=== PATIENT | female | born 1995 | race Caucasian/White ===

== ENCOUNTER 2018-11-20 00:05 | Inpatient (IN) | payer OTHER ==
[2018-11-20] VITALS (9 sets, daily range): BP systolic 96–120; BP diastolic 50–73; PULSE 82–110; RESP 17–20; Ht 147.3 cm; Wt 75.6 kg
[~2018-11-20] VITALS: Ht 147.3 cm; Wt 75.6 kg
[~2018-11-20 00:05] MED LIST: FERR240T9 PO; FOLI-49 PO; PREN-39 PO
[2018-11-20] MEDS: LACTATED RINGER'S 1,000 ML IV SCH ×4 (00:54→08:09)
[2018-11-20] MEDS ORDERED: CARBOPROST 250 MCG INJ IM PRN ×2 (01:00→13:00)
[2018-11-20] MEDS ORDERED: IBUPROFEN 600 MG TAB PO PRN (01:00)
[2018-11-20] MEDS ORDERED: OXYCODONE/ASPIRIN (4.88/325) TAB PO PRN (01:00)
[2018-11-20] MEDS ORDERED: LIDOCAINE 1% (MPF) 30 ML INJ INJ PRN (01:00)
[2018-11-20] MEDS ORDERED: BUTORPHANOL 2 MG INJ IV PRN (01:00)
[2018-11-20] MEDS ORDERED: MISOPROSTOL 200 MCG TAB PR PRN ×2 (01:00→13:00)
[2018-11-20] MEDS ORDERED: OXYTOCIN 30 UNITS/LR 500 ML IV SCH ×4 (01:00→12:48)
[2018-11-20] MEDS ORDERED: OXYTOCIN 30 UNITS/LR 500 ML IV PRN ×2 (01:00→13:00)
[2018-11-20] MEDS ORDERED: METHYLERGONOVINE 0.2 MG INJ IM PRN ×2 (01:00→13:00)
[2018-11-20] MEDS ORDERED: AMPICILLIN 2 GM/NS (PMX) 100 ML IV ONE (01:00)
[2018-11-20] MEDS ORDERED: FENTAnyl 2MCG/ML-ROPIV 0.2% 100 ML ONE (02:09)
--- NOTE | 2018-11-20 02:22 | PREAC ---
Date/Time of Note Date/Time of Note DATE: 11/20/18 TIME: 02:20 Anesthesia Eval and Record Evaluation Time Pre-Procedure Interview DATE: 11/20/18 TIME: 01:34 Age 23 Sex female NPO: 8 hrs Preoperative diagnosis iup @ 39 wks. labor, water broke, Planned procedure jose francisco Past Medical History Past Medical History: Includes : : (2), Para: (1), Gestational age: (39 wks.) Surgery & Anesthesia Issues No known issue Meds Anticoagulation: No Beta Rhonda within 24 hr: No Reason Beta Rhonda not given: Pt. not on B-Rhonda Reported Medications Folic Acid* (Folic Acid*) 1 Mg Tablet, 1 MG PO DAILY, TAB 08/29/15 Ferrous Gluconate (Iron) 1 Tab Tablet, 1 TAB PO 08/29/15 Vits W-Ca,Fe,Fa(<1MG) ( Vitamins) 1 Tab Tablet, 1 TAB PO 08/29/15 Current Medications Lactated Ringer's 1,000 ml @ 125 mls/hr Q8H IV Last administered on 11/20/18at 01:58; Admin Dose 125 MLS/HR; Start 11/20/18 at 00:32 Ampicillin 50 ml @ 100 mls/hr Q4H IV ; Start 11/20/18 at 05:00 Butorphanol Tartrate (Stadol) 2 mg Q2H PRN IV PAIN; Start 11/20/18 at 01:00 Lidocaine (Xylocaine 1% (Mpf)) 30 ml ONCE PRN INJ EPISIOTOMY; Start 11/20/18 at 01:00 Oxytocin/Lactated Ringer's 500 ml @ 500 mls/hr ONCE POST IV ; Start 11/20/18 at 01:00 Oxytocin/Lactated Ringer's 500 ml @ 125 mls/hr POST IV ; Start 11/20/18 at 01:00 Ibuprofen (Motrin) 600 mg ONCE PRN PO PAIN LEVEL 1-5; Start 11/20/18 at 01:00 Oxycodone/Aspirin (Percodan) 2 tab ONCE PRN PO PAIN LEVEL 6-10; Start 11/20/18 at 01:00 Oxytocin/Lactated Ringer's 500 ml @ 0 mls/hr ONCE PRN IV VAGINAL BLEEDING; Start 11/20/18 at 01:00 Methylergonovine Maleate (Methergine) 0.2 mg ONCE PRN IM VAGINAL BLEEDING; Start 11/20/18 at 01:00 Carboprost Tromethamine (Hemabate) 250 mcg ONCE PRN IM VAGINAL BLEEDING; Start 11/20/18 at 01:00 Misoprostol (Cytotec) 1,000 mcg ONCE PRN [place] VAGINAL BLEEDING; Start 11/20/18 at 01:00 Oxytocin/Lactated Ringer's 500 ml @ 0 mls/hr FOR AUGMENTATION IV ; Start 11/20/18 at 01:00 Meds reviewed: Yes Allergies Coded Allergies: No Known Allergy (Unverified , 11/20/18) Allergies Reviewed: Yes Labs/Studies Labs Reviewed: Reviewed by anesthesiologist Result Diagram: 11/20/18 0052 Laboratory Tests 11/20/18 00:52 Blood Bank Test 11/20/18 00:52 Blood Type A POSITIVE Rh Immune Globulin Candidate NO test: Positive Studies: ECG (n/a), CXR (n/a) Pre-procedure Exam Airway: Adequate mouth opening, Adequate thyromental dist Mallampati: Mallampati II Teeth: Normal Lung: Normal Heart: Normal ASA Physical Status ASA physical status: 2 Emergency: E Planned Anesthetic Neuraxial: Epidural Planned Pain Management Epidural Pre-operative Attestations Prior to commencing anesthesia and surgery, the patient was re-evaluated, there was verification of: *The patient's identity *The results of appropriate recent lab work and preoperative vital signs *The above evaluation not changing prior to induction *Anesthetic plan, risk benefits, alternative and complications discussed with patient/family; questions answered; patient/family understands, accepts and wishes to proceed. [employer] used LAILA MOSQUERA MD Nov 20, 2018 02:22
--- NOTE | 2018-11-20 02:23 | OPPN ---
Date/Time of Note Date/Time of Note DATE: 11/21/18 TIME: 23:30 Anesthesia Follow up Anesthesia Follow up Respiratory function: WNL Cardiovascular function: WNL LAILA MOSQUERA MD Nov 20, 2018 02:23
[2018-11-20] MEDS ORDERED: ONDANSETRON 4 MG INJ IV PRN ×2 (02:30→10:00)
[2018-11-20] MEDS ORDERED: DIPHENHYDRAMINE 50 MG INJ IV PRN ×3 (02:30→10:00)
[2018-11-20] MEDS ORDERED: NALBUPHINE HCL (10 MG/1 ML) INJ IV PRN ×2 (02:30→10:00)
[2018-11-20] MEDS ORDERED: FENTAnyl 2MCG/ML-ROPIV 0.2% 100 ML BAG EPI SCH (02:30)
[2018-11-20] MEDS ORDERED: NALOXONE (0.4 MG/ML) INJ IV PRN ×2 (02:30→10:00)
--- NOTE | 2018-11-20 03:46 | TRIAGE ---
OB Triage Datetime Report Generated by CPN: 11/20/2018 03:46 Datetime: 11/20/2018 03:26 Labor Evaluation Frequency: 2-4 Monitor Mode: External Duration (sec)2399: 50-90 Quality: Moderate Resting Tone [place]: Relaxed Heart Rate FHR Baseline Rate: 150 Monitor Mode: External US Variability: Moderate 6-25 bpm Accelerations: 15X15 Decelerations: None Category: Category I Datetime: 11/20/2018 03:00 Labor Evaluation Frequency: 1.5-4 Monitor Mode: External Duration (sec)2399: 60-100 Quality: Moderate Pattern: Normal: <= 5 Contractions in 10 Minutes Resting Tone [place]: Relaxed Interventions: Side to Side; Sterile Vaginal Exam Heart Rate FHR Baseline Rate: 145 Monitor Mode: External US Variability: Moderate 6-25 bpm Accelerations: 15X15 Decelerations: Variable Category: Category II Comments: Periods of baseline at 140bpm Pain Assessment Pain Scale: 0 Pain Presence: None/Denies Pain Type: N/A Datetime: 11/20/2018 02:32 Vaginal Exam Dilatation (cms): 4.0 Effacement (%): 80 Station: -2 Exam By: dionicio portillo Membrane Status: Ruptured Amniotic Fluid Color: Clear Amniotic Fluid Amount: Small Amniotic Fluid Odor: None Vaginal Bleeding: Normal Show Datetime: 11/20/2018 02:21 Pain Assessment Pain Scale: 0 Pain Presence: Intermittent Pain Type: Pressure Pain Location: Perineum Pain Relief Measures: Comfort Measures Pain Assessment Comments: PT DENIES PAIN JUST FEELS SOME SHARP PRESSURE IN THE PERINEUM Datetime: 11/20/2018 01:59 Labor Evaluation Frequency: 1.5-4 Monitor Mode: External Duration (sec)2399: 60-110 Quality: Strong Pattern: Normal: <= 5 Contractions in 10 Minutes Resting Tone [place]: Relaxed Heart Rate FHR Baseline Rate: 145 Monitor Mode: External US Variability: Moderate 6-25 bpm Accelerations: 15X15 Decelerations: None Category: Category I Pain Assessment Pain Scale: 10 Pain Presence: Intermittent Pain Type: Contraction; Pressure Pain Location: Abdomen; Back; Perineum Pain Relief Measures: Comfort Measures Datetime: 11/20/2018 01:50 Pain Assessment Pain Scale: 10 Pain Presence: Intermittent Pain Type: Contraction; Pressure Pain Location: Abdomen; Back; Perineum Pain Relief Measures: Comfort Measures Datetime: 11/20/2018 01:30 Time of Arrival: 11/20/2018 00:30 EGA: 39.5 Arrived By: Transfer Arrived From: TRIAGE Datetime: 11/20/2018 01:29 Monitor Mode: External Monitor Mode: External US Comments: MONITOR ON, PT IN FBC7 Datetime: 11/20/2018 01:18 Vaginal Exam Dilatation (cms): 4.0 Effacement (%): 80 Station: -2 Exam By: M.YODER RN Membrane Status: Ruptured Vaginal Bleeding: Normal Show Cervix, Consistency: Soft Cervix, Position: Anterior Presentation 'A': Cephalic Datetime: 11/20/2018 01:14 Stage of : Labor Assessment Type: Ongoing Assessment Time of Arrival: 11/19/2018 23:55 EGA: 39.4 Arrived By: Wheelchair Arrived From: Home Chief Complaint: CONTRACTIONS SINCE 2039 BLOODY SHOW FOUL SMELLING DISCHARGE Movement: Present Contractions: Regular Time Contractions Began: 11/19/2018 20:40 Contractions: 1-4 Rupture of Membranes: Ruptured Vaginal Bleeding: Normal Show Vaginal Discharge: Present Recent Sexual Intercouse: Denies Abdominal Trauma: Not Applicable Patient Complaints: Contractions; Other Time Provider Notified: 11/20/2018 00:28 Provider Notified: DR. BELLA Initial Plan: EFM, SVE, NITRIZINE, CALL OB Maternal Assessment Level of Consciousness: Fully Conscious DTR's/Clonus: DTRs 2+; No Clonus Headache: Denies Blurred Vision: No Respiratory Effort: Unlabored; Regular Rhythm; Equal Expansion Breath Sounds, Left: Clear and Equal Breath Sounds, Right: Clear and Equal Nausea/Vomiting: Denies RUQ Epigastric Pain: Denies Lower Extremities Edema: None Degree: None Upper Extremities Edema: None Degree: None Facial Edema: None Temperature Route: Oral Fall Risk Assessment History of Falling: (0) No Secondary Diagnosis: (0) No Ambulatory Aid: (0) Bedrest/Nurse Assist IV Therapy: (20) Yes Gait: (0) Normal/Bedrest/Immobile Mental Status: (0) Oriented to Own Ability Fall Score: 20 Fall Risk Score Definition: No Risk: No action required Pain Assessment Pain Scale: 9 Pain Presence: Intermittent Pain Type: Contraction; Pressure Pain Location: Abdomen; Back; Perineum Pain Relief Measures: Comfort Measures Datetime: 11/20/2018 01:10 Stage of : Labor Labor Evaluation Frequency: 1-4 Monitor Mode: External Duration (sec)2399: 50-80 Quality: Moderate Pattern: Normal: <= 5 Contractions in 10 Minutes Resting Tone [place]: Relaxed Heart Rate FHR Baseline Rate: 145 Monitor Mode: External US Variability: Moderate 6-25 bpm Accelerations: 10X10 Decelerations: None Category: Category I Datetime: 11/20/2018 01:00 Labor Evaluation Frequency: 1-4 Monitor Mode: External Duration (sec)2399: 50-110 Quality: Moderate Pattern: Normal: <= 5 Contractions in 10 Minutes Resting Tone [place]: Relaxed Heart Rate FHR Baseline Rate: 145 Monitor Mode: External US Variability: Moderate 6-25 bpm Accelerations: 15X15 Decelerations: Variable Category: Category II Pain Assessment Pain Scale: 9 Pain Presence: Intermittent Pain Type: Contraction Pain Location: Abdomen; Back Pain Relief Measures: Comfort Measures Datetime: 11/20/2018 00:34 EGA: 39.4 Membranes Rupture Method: Spontaneous Datetime: 11/20/2018 00:28 Stage of : OB Triage Labor Evaluation Frequency: 1-4 Monitor Mode: External Duration (sec)2399: 60-80 Quality: Moderate Pattern: Normal: <= 5 Contractions in 10 Minutes Resting Tone [place]: Relaxed Heart Rate FHR Baseline Rate: 145 Monitor Mode: External US Variability: Moderate 6-25 bpm Accelerations: 15X15 Decelerations: None Category: Category I Datetime: 11/20/2018 00:20 Vaginal Exam Dilatation (cms): 3.0 Effacement (%): 70 Station: -3 Membrane Status: Ruptured Membranes Ruptured Date/Time: 11/17/2018 09:00 Pool: Negative Nitrazine: Positive Datetime: 11/20/2018 00:15 Stage of : OB Triage Maternal Assessment Level of Consciousness: Fully Conscious DTR's/Clonus: DTRs 2+; No Clonus Headache: Denies Blurred Vision: No Respiratory Effort: Unlabored; Regular Rhythm; Equal Expansion Breath Sounds, Left: Clear and Equal Breath Sounds, Right: Clear and Equal Nausea/Vomiting: Denies RUQ Epigastric Pain: Denies Lower Extremities Edema: None Degree: None Upper Extremities Edema: None Degree: None Facial Edema: None Temperature Route: Oral Fall Risk Assessment History of Falling: (0) No Secondary Diagnosis: (0) No Ambulatory Aid: (0) Bedrest/Nurse Assist IV Therapy: (0) No Gait: (0) Normal/Bedrest/Immobile Mental Status: (0) Oriented to Own Ability Fall Score: 0 Fall Risk Score Definition: No Risk: No action required Pain Assessment Pain Scale: 9 Pain Presence: Intermittent Pain Type: Contraction Pain Location: Abdomen Pain Relief Measures: Comfort Measures Datetime: 11/20/2018 00:10 Monitor Mode: External Contraction Comments: APPLIED Monitor Mode: External US Comments: APPLIED Datetime: 11/20/2018 00:00 Time of Arrival: 11/19/2018 23:55 Arrived By: Wheelchair Arrived From: Home Chief Complaint: UC'S SINCE 2039 _ BLOODY SHOW PT REPOTED LEAKING SMALL AMOUNT OF FLUID SINCE Wednesday11/17/2018 @9AM. PT REPORTED FOUL SMELLING DISCHARGE TODAY 11/19/18 Movement: Present Contractions: Regular Time Contractions Began: 11/19/2018 20:40 Contractions: 1-4 Rupture of Membranes: Ruptured Vaginal Bleeding: Normal Show Vaginal Discharge: Present Recent Sexual Intercouse: Denies Abdominal Trauma: Not Applicable Patient Complaints: Contractions Time Provider Notified: 11/20/2018 00:28 Provider Notified: DR. BELLA Initial Plan: DONN MONTOYA, CALL OB
[2018-11-20] MEDS: AMPICILLIN 1 GM/NS (PMX) 50 ML IV SCH ×4 (06:09→14:19)
[2018-11-20] MEDS ORDERED: ACETAMINOPHEN 325 MG TAB PO PRN (06:30)
[2018-11-20] MEDS ORDERED: CEFAZOLIN 2 GM/50 ML (PMX) 50 ML IVPB ONE (08:35)
[2018-11-20] MEDS ORDERED: CLINDAMYCIN 900 MG/D5W (PMX) 50 ML IVPB SCH (09:00)
[2018-11-20] MEDS ORDERED: CEFAZOLIN 2 GM/50 ML (PMX) 50 ML IVPB SCH (09:00)
[2018-11-20] MEDS ORDERED: LIDOCAINE 100 MG SYRINGE ONE (09:10)
[2018-11-20] MEDS ORDERED: LIDOCAINE 2% (SDV) 5 ML INJ ONE (09:10)
[2018-11-20] MEDS: GENTAMICIN 80 MG/NS (PMX) 50 ML IVPB SCH ×3 (09:15→23:31)
[2018-11-20] MEDS ORDERED: ONDANSETRON 4 MG INJ ONE (09:20)
[2018-11-20] MEDS ORDERED: METOCLOPRAMIDE 10 MG INJ ONE (09:20)
[2018-11-20] MEDS ORDERED: OXYTOCIN 10 UNIT INJ ONE ×2 (09:30→09:59)
[2018-11-20] MEDS ORDERED: MIDAZOLAM 1 MG/ML 2 ML INJ ONE (09:31)
[2018-11-20] MEDS ORDERED: morphine SULFATE/PF (10 MG/10 ML) INJ ONE (09:32)
--- NOTE | 2018-11-20 09:41 | PAC ---
Date/Time of Note Date/Time of Note DATE: 11/20/18 TIME: 14:00 Post-Anesthesia Notes Post-Anesthesia Note Last documented vital signs Vital Signs Date Temp Pulse Resp B/P (MAP) Pulse Ox O2 O2 Flow FiO2 Time Delivery Rate 11/20/18 100.3 06:40 11/20/18 82 18 120/73 Room Air 01:14 (89) Activity: WNL Respiratory function: WNL Cardiovascular function: WNL Mental status: Baseline Pain reasonably controlled: Yes Hydration appropriate: Yes Nausea/Vomiting absent: Yes LAILA MOSQUERA MD Nov 20, 2018 09:41
--- NOTE | 2018-11-20 09:47 | PREAC ---
Date/Time of Note Date/Time of Note DATE: 11/20/18 TIME: 09:42 Anesthesia Eval and Record Evaluation Time Pre-Procedure Interview DATE: 11/20/18 TIME: 09:10 Age 23 Sex female NPO: 8 hrs Preoperative diagnosis iup @ 39 wks, labor, chorioamnionitis, failure to progress, Planned procedure primary c/s Past Medical History Past Medical History: Includes : : (2), Para: (1), Gestational age: (39 wks.), Other (chorioamnionitis, failure to progress) Surgery & Anesthesia Issues No known issue Meds Anticoagulation: No Beta Rhonda within 24 hr: No Reason Beta Rhonda not given: Pt. not on B-Rhonda Reported Medications Folic Acid* (Folic Acid*) 1 Mg Tablet, 1 MG PO DAILY, TAB 08/29/15 Ferrous Gluconate (Iron) 1 Tab Tablet, 1 TAB PO 08/29/15 Vits W-Ca,Fe,Fa(<1MG) ( Vitamins) 1 Tab Tablet, 1 TAB PO 08/29/15 Current Medications Lactated Ringer's 1,000 ml @ 125 mls/hr Q8H IV Last administered on 11/20/18at 08:09; Admin Dose 125 MLS/HR; Start 11/20/18 at 00:32 Ampicillin 50 ml @ 100 mls/hr Q4H IV Last administered on 11/20/18at 06:09; Admin Dose 100 MLS/HR; Start 11/20/18 at 05:00 Butorphanol Tartrate (Stadol) 2 mg Q2H PRN IV PAIN; Start 11/20/18 at 01:00 Lidocaine (Xylocaine 1% (Mpf)) 30 ml ONCE PRN INJ EPISIOTOMY; Start 11/20/18 at 01:00 Oxytocin/Lactated Ringer's 500 ml @ 500 mls/hr ONCE POST IV ; Start 11/20/18 at 01:00 Oxytocin/Lactated Ringer's 500 ml @ 125 mls/hr POST IV ; Start 11/20/18 at 01:00 Ibuprofen (Motrin) 600 mg ONCE PRN PO PAIN LEVEL 1-5; Start 11/20/18 at 01:00 Oxycodone/Aspirin (Percodan) 2 tab ONCE PRN PO PAIN LEVEL 6-10; Start 11/20/18 at 01:00 Oxytocin/Lactated Ringer's 500 ml @ 0 mls/hr ONCE PRN IV VAGINAL BLEEDING; Start 11/20/18 at 01:00 Methylergonovine Maleate (Methergine) 0.2 mg ONCE PRN IM VAGINAL BLEEDING; Start 11/20/18 at 01:00 Carboprost Tromethamine (Hemabate) 250 mcg ONCE PRN IM VAGINAL BLEEDING; Start 11/20/18 at 01:00 Misoprostol (Cytotec) 1,000 mcg ONCE PRN [place] VAGINAL BLEEDING; Start 11/20/18 at 01:00 Oxytocin/Lactated Ringer's 500 ml @ 0 mls/hr FOR AUGMENTATION IV Last administered on 11/20/18at 03:26; Admin Dose 1 MLS/HR; Start 11/20/18 at 01:00 Naloxone HCl (Narcan) 0.1 mg Q2M PRN IV DECREASED REPIRATORY RATE; Start 11/20/18 at 02:30; Stop 11/21/18 at 02:29 Diphenhydramine HCl (Benadryl) 25 mg Q6H PRN IV ITCHING; Start 11/20/18 at 02:30; Stop 11/21/18 at 02:29 Nalbuphine HCl (Nubain) 2 mg ONCE PRN IV ITCHING; Start 11/20/18 at 02:30; Stop 11/21/18 at 02:29 Ondansetron HCl (Zofran Inj) 4 mg Q6H PRN IV NAUSEA AND/OR VOMITING; Start 11/20/18 at 02:30; Stop 11/21/18 at 02:29 Fentanyl/ Ropivacaine 100 ml EPIDURAL INFUSION EPI ; Start 11/20/18 at 02:30 Acetaminophen (Tylenol Tab) 650 mg Q6H PRN PO MILD PAIN(1-3)OR ELEVATED TEMP Last administered on 11/20/18at 06:40; Admin Dose 650 MG; Start 11/20/18 at 06:30 Gentamicin Sulfate 50 ml @ 104 mls/hr Q8H IVPB ; Start 11/20/18 at 08:00 Clindamycin HCl/ Dextrose 50 ml @ 50 mls/hr Q6 IVPB ; Start 11/20/18 at 12:00 Cefazolin Sodium/ Dextrose 50 ml @ 100 mls/hr ONCE IVPB ; Start 11/20/18 at 09:00 Meds reviewed: Yes Allergies Coded Allergies: No Known Allergy (Unverified , 11/20/18) Allergies Reviewed: Yes Labs/Studies Labs Reviewed: Reviewed by anesthesiologist Result Diagram: 11/20/18 0052 Laboratory Tests 11/20/18 00:52 Blood Bank Test 11/20/18 00:52 Blood Type A POSITIVE Rh Immune Globulin Candidate NO test: Positive Studies: ECG (n/a), CXR (n/a) Pre-procedure Exam Last vitals Vital Signs Date Temp Pulse Resp B/P (MAP) Pulse Ox O2 O2 Flow FiO2 Time Delivery Rate 11/20/18 100.3 06:40 11/20/18 82 18 120/73 Room Air 01:14 (89) Airway: Adequate mouth opening, Adequate thyromental dist Mallampati: Mallampati II Teeth: Normal Lung: Normal Heart: Normal ASA Physical Status ASA physical status: 2 Emergency: E Planned Anesthetic General/MAC: TIVA (post baby) Neuraxial: Epidural Planned Pain Management Sub-arachniod narcotics (epidural MSO4 PF) Pre-operative Attestations Prior to commencing anesthesia and surgery, the patient was re-evaluated, there was verification of: *The patient's identity *The results of appropriate recent lab work and preoperative vital signs *The above evaluation not changing prior to induction *Anesthetic plan, risk benefits, alternative and complications discussed with patient/family; questions answered; patient/family understands, accepts and wishes to proceed. [employer] used LAILA MOSQUERA MD Nov 20, 2018 09:47
[2018-11-20] MEDS ORDERED: LACTATED RINGER'S 1,000 ML IV ONE (09:49)
--- NOTE | 2018-11-20 09:49 | OPPN ---
Date/Time of Note Date/Time of Note DATE: 11/21/18 TIME: 00:30 Anesthesia Follow up Anesthesia Follow up Last documented vital signs Vital Signs Date Temp Pulse Resp B/P (MAP) Pulse Ox O2 O2 Flow FiO2 Time Delivery Rate 11/20/18 100.3 06:40 11/20/18 82 18 120/73 Room Air 01:14 (89) Respiratory function: WNL Cardiovascular function: WNL Comments epidural duramorph, pod #1 f/u. S: pt. pod #1. min. bt pain. min. n/v. min need for bt pain meds ie. nsaids/opiates. ambulating. O: vss, afeb. A: min. bt pain sec. to epidural morphine. P: no complications. LAILA MOSQUERA MD Nov 20, 2018 09:49
--- NOTE | 2018-11-20 09:59 | QN ---
Documentation Comment patient has had no cervical exchange operator 7 hours despite SROM and Adequate CTXs CX(4cm/90/-2) patient is febrile ,ON Ampicillin tachycardia Remote from Delivery Triple Antibiotics started for the patient ,Amnifusiion is given Primary csection vs Continue the same managment D/w patient,Risks and benefits of Each extensively discussed She desires to have a Primary c/section and consented for that NALLELY LUBIN M.D. Nov 20, 2018 09:59
[2018-11-20] MEDS ORDERED: KETOROLAC 60 MG INJ IM PRN (10:00)
[2018-11-20] MEDS ORDERED: MIDAZOLAM 1 MG/ML 2 ML INJ IV PRN (10:00)
[2018-11-20] MEDS ORDERED: HYDROmorphONE 1 MG/ML SYG IV PRN (10:00)
[2018-11-20] MEDS ORDERED: ZOLPIDEM 5 MG TAB PO PRN (10:00)
[2018-11-20] MEDS ORDERED: HYDROmorphONE 0.5 MG/0.5 ML SYG IV PRN (10:00)
[2018-11-20] MEDS ORDERED: MEPERIDINE 25 MG INJ IV PRN (10:00)
--- NOTE | 2018-11-20 10:01 | HP ---
Date/Time of Note Date/Time of Note DATE: 11/20/18 TIME: 09:59 OB - History Hx of Present Free Text/Dictation patient has had no cervical change control analyst 7 hours despite SROM and Adequate CTXs CX(4cm/90/-2) patient is febrile ,ON Ampicillin tachycardia Remote from Delivery Triple Antibiotics started for the patient ,Amnifusiion is given Primary csection vs Continue the same managment D/w patient,Risks and benefits of Each extensively discussed She desires to have a Primary c/section and consented for that : 2 Para: 1 Care: Good Care Ultrasounds: Normal mid trimester US Obstetrical Complications: None Medical Complications: None Past Family/Social History * Past Medical, Surgical, Family and Obstetric Histories reviewed from chart. OB Admission Exam Vital Signs Vital Signs Vital Signs Date Temp Pulse Resp B/P (MAP) Pulse Ox O2 O2 Flow FiO2 Time Delivery Rate 11/20/18 100.3 06:40 11/20/18 82 18 120/73 Room Air 01:14 (89) Physical Exam Abdomen: WNL Extremities: Normal Cervical Dilatation: 4cm Effacement: 75% Station: -1 Membranes: Ruptured Amniotic Fluid: Clear Heart Rate: 140's Accelerations: Accelerations Present Decelerations: Variable Decelerations Varibility: Minimum Contractions on Admission: < 5 Minutes Apart Last 72 hours Lab Results CBC & BMP 11/20/18 00:52 OB Assessment/Plan Reason for admission: observation Plan: Section Other plan: 39+wks GA ,Admitted in labor 70 hours of SROM and no cervical change control analyst 7 hours NALLELY LUBIN M.D. Nov 20, 2018 10:01
--- NOTE | 2018-11-20 10:03 | OPPN ---
Date/Time of Note Date/Time of Note DATE: 11/20/18 TIME: 10:01 Operative Report Planned Procedure Free Text/Dictation patient has had no cervical change management specialist 7 hours despite SROM and Adequate CTXs CX(4cm/90/-2) patient is febrile ,ON Ampicillin tachycardia Remote from Delivery Triple Antibiotics started for the patient ,Amnifusiion is given Primary csection vs Continue the same managment D/w patient,Risks and benefits of Each extensively discussed She desires to have a Primary c/section and consented for that Procedure date Nov 20, 2018 Procedure(s) primary c/section Performed by see signature line [employer]: ALFONSO VILLA MD 2nd [employer] none Pre-procedure diagnosis Failure to progress Chorioamnionitis Category 2 tracing [id number] Anesthesia Type: [id number] epidural Post-Procedure Post-procedure diagnosis same Findings Live Baby [], Apgars [] and [], weight [], position [], [] presentation []cord. Estimated Blood Loss: 500 - 600 mls Specimen(s) placenta and cord Grafts/Implant(s) none Complication(s) none NALLELY LUBIN M.D. Nov 20, 2018 10:03
[2018-11-20] MEDS: KETOROLAC 30 MG INJ IV PRN ×2 (10:51→23:25)
[2018-11-20] MEDS ORDERED: CLINDAMYCIN 900 MG/D5W (PMX) 50 ML IVPB ONE (10:58)
[2018-11-20] MEDS: CLINDAMYCIN 900 MG/D5W (PMX) 50 ML IVPB SCH ×2 (10:59→18:10)
--- NOTE | 2018-11-20 12:21 | OPR ---
DATE OF OPERATION: 11/20/2018 PREOPERATIVE DIAGNOSIS: Failure to progress. No cervical change more than 7 hours despite rupture o f the membrane and adequate contractions, category 2 tracing remote from delivery. POSTOPERATIVE DIAGNOSES: Failure to progress. No cervical change more than 7 hours despite rupture o f the membrane and adequate contractions, category 2 tracing remote from delivery. OPERATION PERFORMED: Primary section. ATTENDING SURGEON: Dr. Hamlin. ARTIFICIAL CHERRY MAKER: . TYPE OF ANESTHESIA: Epidural. ANESTHESIOLOGIST: . ESTIMATED BLOOD LOSS: 600 mL. TECHNIQUE: The patient was taken to the operating room where epidural anesthesia was found to be radha quate. Patient was placed in supine position after prep and drape. A Pfannenstiel incision made 2 c m above the symphysis pubis. It was extended to the underlying fascia. Fascia was nicked in the mid line. Fascial incision was extended bilaterally. Fascia was from underlying muscles. Mus cles in the midline. Peritoneum was entered sharply. Peritoneal incision was extended. B ladder blade was placed inside the abdominal cavity. Lower uterine segment incision was made. Baby was delivered vertex, handed to the NICU team. Cord blood sent. Placenta was removed manually. Roro kashif was exteriorized. Intrauterine cavity was cleaned using 2 sponges. Lower uterine segment incisi on was closed in 2 layers using 0 looped PDS sutures. Gutters were cleaned. Uterus was inserted ins rubi the abdominal cavity. Peritoneum and muscle were reapproximated using 2-0 chromic sutures. Fasc ia was closed in a running nonlocking fashion using 0 PDS sutures. Subcutaneous tissue was closed us ing plain sutures. The skin was closed using Monocryl sutures. Dermabond was placed on top of the i ncision. Patient tolerated the procedure well and was transferred to recovery room in stable conditi on. There was no complication regarding this surgery. Dictated By: NALLELY HAMLIN MD RG/NTS Conf#: [id number] DID#: [id number] CC: KAMILLE BELLA MD;*EndCC*
[2018-11-20] MEDS ORDERED: LANOLIN HPA 1 PKT TOP PRN (13:00)
[2018-11-20] MEDS ORDERED: NACL 0.9% 3 ML SYG IV SCH (13:00)
--- NOTE | 2018-11-20 17:48 | NUR ---
EOSS: VSS, BREAST FEEDING WITH ASSISTANCE, FUNDUS REMAINS FIRM WITH MODERATE AMOUNT OF LOCHIA, ABDOMINAL DRESSING REMAINS DRY AND INTACT. QUINTANILLA CATHETER TO GRAVITY. PT. ON IV ABX FOR MATERNAL TEMP. BONDING WELL WITH BABY.
[2018-11-20] MEDS: SENNA/DOCUSATE NA (8.6MG/50MG) TAB PO SCH (20:54)
[2018-11-21] MEDS: CLINDAMYCIN 900 MG/D5W (PMX) 50 ML IVPB SCH ×4 (00:24→18:38)
[2018-11-21 04:00] VITALS: BP 96/51; PULSE 94; RESP 18
--- NOTE | 2018-11-21 04:55 | NUR ---
EOSS. PT. STABLE. NO RESP. DISTRESS NOTED. NO COMPLAINT OF PAIN OR ANY DISCOMFORT NOTED AT THIS TIME.BONDING WITH HER BABY. MOVING TOWARDS EXPECTED GOALS.
[2018-11-21 08:00] VITALS: BP 91/53; PULSE 99; RESP 16
[2018-11-21] MEDS: SENNA/DOCUSATE NA (8.6MG/50MG) TAB PO SCH ×2 (08:49→20:55)
[2018-11-21] MEDS: KETOROLAC 30 MG INJ IV PRN (08:49)
[2018-11-21] MEDS: GENTAMICIN 80 MG/NS (PMX) 50 ML IVPB SCH ×3 (08:50→23:49)
--- NOTE | 2018-11-21 10:00 | NUR ---
cross catheter removed. Tip intact. Instructed patient to call when needs to void and patient verbalized understanding.
[2018-11-21] MEDS: IBUPROFEN 600 MG TAB PO SCH ×3 (12:00→23:53)
[2018-11-21] MEDS: OXYCODONE/ACETAMINOPHEN (5/325) TAB PO PRN ×2 (12:48→21:00)
[2018-11-21 16:06] VITALS: BP 88/49; PULSE 91; RESP 20
--- NOTE | 2018-11-21 16:19 | QN ---
Documentation Comment POD#1 is stable afebrile tolerates Diet No VB +Flatus +voids Vs stable Gen NAD Abd soft NT ND Dressing to be removed Genitalia No blood at perineum --->Ambulation NALLELY LUBIN M.D. Nov 21, 2018 16:19
--- NOTE | 2018-11-21 18:20 | NUR ---
EOSS: PATIENT IN STABLE CONDITION. BONDING WELL WITH HER BABY. DENIES PAIN AT THIS TIME. VOIDEDX1 AT THIS TIME. PASSING FLATUS. AMBULATING WELL. WELL. BOTTLE FEEDING ALSO PER REQUEST. ENCOURAGED TO BREASTFEED AND HAND EXPRESS.
[2018-11-21 20:00] VITALS: BP 92/51; PULSE 86; RESP 18
[2018-11-22] MEDS: CLINDAMYCIN 900 MG/D5W (PMX) 50 ML IVPB SCH ×3 (00:33→11:36)
[2018-11-22 04:40] VITALS: BP 96/51; PULSE 74; RESP 18
[2018-11-22] MEDS: IBUPROFEN 600 MG TAB PO SCH ×4 (05:56→23:39)
--- NOTE | 2018-11-22 06:33 | NUR ---
eoss. pt. stable. no resp. distress noted. no complaint of pain or any distress noted at this time. bonding with her baby .moving towards expected goals.
[2018-11-22 08:20] VITALS: BP 111/57; PULSE 87; RESP 17
[2018-11-22] MEDS: SENNA/DOCUSATE NA (8.6MG/50MG) TAB PO SCH ×2 (08:41→21:13)
[2018-11-22] MEDS: GENTAMICIN 80 MG/NS (PMX) 50 ML IVPB SCH ×2 (08:42→16:00)
--- NOTE | 2018-11-22 15:40 | NUR ---
DRESSING REMOVED. DERMABOND, LOOKS BRUISED, INTACT, NO SIGNS OF INFECTION NOTED.
--- NOTE | 2018-11-22 15:50 | QN ---
Documentation Comment POD#2 is stable afebrile tolerates Diet No VB +Flatus +voids Vs stable Gen NAD Abd soft NT ND Dressing to be removed Genitalia No blood at perineum --->Ambulation NALLELY LUBIN M.D. Nov 22, 2018 15:50
[2018-11-22 16:00] VITALS: BP 104/51; PULSE 82; RESP 18
[2018-11-22] MEDS: OXYCODONE/ACETAMINOPHEN (5/325) TAB PO PRN (17:16)
--- NOTE | 2018-11-22 18:25 | NUR ---
E.O.S.S. PATIENT IS STABLE. AMBULATING, PASSING GAS, HAD B.M., VOIDING OK, TOOK SHOWER, LOCHIA IS SCANT. BONDING WITH THE BABY, WELL. MOVING TOWARD OUTCOMES.
[2018-11-22 20:30] VITALS: BP 105/61; PULSE 76; RESP 17
[2018-11-23 04:20] VITALS: BP 102/53; PULSE 74; RESP 18
--- NOTE | 2018-11-23 05:22 | NUR ---
EOSS: Pt is in stable condition. No distress noted. Pt up and walking. Bonding well with Baby.
[2018-11-23] MEDS: IBUPROFEN 600 MG TAB PO SCH ×2 (05:31→11:38)
[2018-11-23] MEDS: SENNA/DOCUSATE NA (8.6MG/50MG) TAB PO SCH (08:31)
[2018-11-23 08:45] VITALS: BP 94/55; PULSE 78; RESP 16
[2018-11-23] MEDS ORDERED: DIPHTH/TET/ACEL PERTUSS (ADULT) 0.5 ML VIAL IM* ONE (09:00)
[2018-11-23] MEDS: OXYCODONE/ACETAMINOPHEN (5/325) TAB PO PRN (10:48)
--- NOTE | 2018-11-23 16:43 | DS ---
Date/Time of Note Date/Time of Note DATE: 11/23/18 TIME: 16:41 Obstetrical Discharge Record Final Diagnosis Final Diagnosis: Term delivered Other Final Diagnosis 23 years old s/p primary low transverse delivery for arrest of dilation. Postoperative day #3. Her course was unremarkable. She is ambulating and tolerating regular diet. She is voiding without difficulty. Pain is controlled on current medication. - AF, VSS - Baby is doing well, at bed side. She is bonding well - Contraception methods with R/B/A/FR discussed - Continue care - Discharge home - Rx and instruction given - Follow up in one and 6 weeks Section Section: Primary Primary Indication Arrest of dilation Condition on Discharge Physical Assessment Last Vitals: Vital Signs Date Temp Pulse Resp B/P (MAP) Pulse Ox O2 O2 Flow FiO2 Time Delivery Rate 11/23/18 98.8 78 16 94/55 (68) Room Air 08:45 11/21/18 95 08:00 Voiding: Yes Bowel Movement: Yes Breast: Soft, non-tender Fundus: Firm Calf Tenderness: No Patient Condition: Stable KAMILLE BELLA Nov 23, 2018 16:43
--- NOTE | 2018-11-23 17:43 | NUR ---
PATIENT WENT HOME WITH THE BABY STABLE. D/C INSTRUCTIONS GIVEN VERBALIZED UNDERSTANDING.
== END 2018-11-23 17:40 | disposition home or self-care (01) | DRG 786 ==
LOC: OBT 00:05 → L-D 00:06 → OBT 00:28 → L-D 08:45 → PP1 12:45
PROVIDERS: ADMIT Obstetrics & Gynecology; ATTEND Obstetrics & Gynecology
PROC: 10D00Z1 Extraction of Products of Conception, Low, Open Approach (ICD-10-PCS; principal; 2018-11-20 09:30)
DX: O62.0 Primary inadequate contractions (principal); O41.1230 Chorioamnionitis, third trimester, not applicable or unspecified; O76 Abnormality in fetal heart rate and rhythm complicating labor and delivery; Z3A.39 39 weeks gestation of pregnancy; Z37.0 Single live birth; Z23 Encounter for immunization
CPT/HCPCS: 62319; 80307; 85025; 85610; 85730; 86592; 86850; 86900; 86901; 87340; 88307; 90715; 99464; G0463; J0290; J0690; J1580; J1885; J2001; J2210; J2250; J2274; J2405; J2590; J2765; J3010; J7120